=== PATIENT | female | born 1980 | race African-American/Black ===

== ENCOUNTER 2021-06-15 14:01 | Emergency (ER) | payer OTHER, SELFPAY ==
[2021-06-15 14:20] VITALS: BP 146/92; PULSE 86; TEMP 98.3; BMI 24.0
[2021-06-15] MEDS ORDERED: IBUPROFEN 600 MG TABLET (FP) PO ONE ×2 (16:07→17:08)
[2021-06-15 16:16] LABS: CHLORIDE 108 mmol/L (98-107); SODIUM 140 mmol/L (136-145)
[2021-06-15 16:18] LABS: BASO % 0.1 % (0-2.0); EOS % 0.6 % (0-4.5); HEMATOCRIT 34.4 % (32.4-45.2); HEMOGLOBIN 11.3 GM/dL (10.7-15.3); LYMPH % 43.5 % (8-40); MCH 30.4 pg (25.7-33.7); MCHC 32.9 g/dl (32.0-36.0); MEAN CELL VOLUME 92.5 fl (80-96); MEAN PLT VOLUME 11.6 fl (7.5-11.1); MONO % 9.6 % (3.8-10.2); NEUT % 46.2 % (42.8-82.8); PLATELET COUNT 115 10^3/uL (134-434); RBC 3.72 M/mm3 (3.60-5.2); RDW 12.6 % (11.6-15.6); WHITE BLOOD COUNT 3.3 K/mm3 (4.0-10.0)
[2021-06-15 16:19] LABS: ALBUMIN 3.1 g/dl (3.4-5.0); CALCIUM 8.7 mg/dL (8.5-10.1)
[2021-06-15 16:20] LABS: ANION GAP 3 MMOL/L (8-16); BLOOD UREA NITROGEN 8.4 mg/dL (7-18); CO2 28 mmol/L (21-32); GLUCOSE,RANDOM 99 mg/dL (74-106)
[2021-06-15 16:22] LABS: CREATININE 0.5 mg/dL (0.55-1.3)
[2021-06-15 16:23] LABS: SGOT/AST 14 U/L (15-37); SGPT/ALT 15 U/L (13-61)
[2021-06-15 16:24] LABS: BILIRUBIN,TOTAL 0.5 mg/dL (0.2-1); TOT PROT 7.1 g/dl (6.4-8.2)
[2021-06-15 16:25] LABS: ALK PHOS 53 U/L (45-117)
[2021-06-15 17:41] LABS: ERYTHROCYTE SEDIMENTATION RATE 21 mm/hr (0-20)
== END 2021-06-15 17:57 | disposition home or self-care (01) ==
LOC: JERFT 14:01
DX: R53.83 Other fatigue (principal)
CPT/HCPCS: 80053; 85025; 85651; 86140; 86160; 86225; 99283-25

== ENCOUNTER 2021-11-21 13:31 | Emergency (ER) | payer OTHER ==
[2021-11-21 13:49] VITALS: BP 131/81; PULSE 74; TEMP 98.1; BMI 24.9
[2021-11-21 17:33] LABS: SYPHILIS W/ RPR CONF NON-REACTIVE (NONREACTIVE)
[2021-11-21 18:01] LABS: HIV INTERPRETATION NEGATIVE (NEGATIVE)
== END 2021-11-21 16:20 | disposition home or self-care (01) ==
LOC: JERFT 13:31
DX: Z77.21 Contact with and (suspected) exposure to potentially hazardous body fluids (principal)
CPT/HCPCS: 36415; 86704; 86780; 86803; 87340; 87389; 87517; 99283-25

== ENCOUNTER 2022-02-10 13:35 | Emergency (ER) | payer OTHER ==
[2022-02-10 13:37] VITALS: RESP 20; TEMP 98.4; BMI 24.7
[2022-02-10] MEDS ORDERED: METOCLOPRAMIDE HCL INJECTION 10 MG/2 ML VIAL ONE ×2 (13:38→14:36)
[2022-02-10] MEDS ORDERED: METOCLOPRAMIDE HCL INJECTION 10 MG/2 ML VIAL IVPUSH ONE (13:40)
[2022-02-10] MEDS ORDERED: SODIUM CHLORIDE 0.9% 500 ML INFUS.BAG IV ONE ×2 (13:40→14:36)
[2022-02-10 14:01] LABS: BASO % 0.4 % (0-2.0); EOS % 0.5 % (0-4.5); HEMATOCRIT 32.3 % (32.4-45.2); LYMPH % 48.6 % (8-40); MCH 31.4 pg (25.7-33.7); MEAN CELL VOLUME 92.1 fl (80-96); MEAN PLT VOLUME 11.5 fl (7.5-11.1); MONO % 12.8 % (3.8-10.2); NEUT % 37.7 % (42.8-82.8); PLATELET COUNT 144 10^3/uL (134-434); RBC 3.51 M/mm3 (3.60-5.2); RDW 12.5 % (11.6-15.6); WHITE BLOOD COUNT 2.6 K/mm3 (4.0-10.0)
[2022-02-10 14:27] LABS: ALBUMIN 2.9 g/dl (3.4-5.0); BLOOD UREA NITROGEN 11.6 mg/dL (7-18); CALCIUM 8.6 mg/dL (8.5-10.1)
[2022-02-10 14:30] LABS: CREATININE 0.6 mg/dL (0.55-1.3)
[2022-02-10 14:32] LABS: BILIRUBIN,TOTAL 0.2 mg/dL (0.2-1); TOT PROT 6.9 g/dl (6.4-8.2)
[2022-02-10] MEDS ORDERED: METOCLOPRAMIDE HCL INJECTION 10 MG/2 ML VIAL IVPB ONE (14:36)
[2022-02-10 16:11] VITALS: BP 120/70; PULSE 70
== END 2022-02-10 16:15 | disposition home or self-care (01) ==
LOC: JER 13:35
PROC: 3E033GC Introduction of Other Therapeutic Substance into Peripheral Vein, Percutaneous Approach (ICD-10-PCS; principal; 2022-02-10)
DX: R42 Dizziness and giddiness (principal); R11.2 Nausea with vomiting, unspecified
CPT/HCPCS: 36415; 80053; 84703; 85025; 99284-25

== ENCOUNTER 2022-02-24 15:07 | Emergency (ER) | payer OTHER ==
[2022-02-24 15:12] VITALS: BP 157/98; PULSE 73; RESP 18; TEMP 97.9; BMI 24.6
[2022-02-24] MEDS ORDERED: SODIUM CHLORIDE 1,000 ML IV STA (15:21)
[2022-02-24] MEDS ORDERED: ACETAMINOPHEN 1000 MG/100 ML BAG IVPB ONE (15:22)
[2022-02-24 15:41] LABS: BASO % 0.6 % (0-2.0); EOS % 1.7 % (0-4.5); HEMOGLOBIN 11.3 GM/dL (10.7-15.3); LYMPH % 49.3 % (8-40); MCH 30.8 pg (25.7-33.7); MCHC 33.3 g/dl (32.0-36.0); MEAN CELL VOLUME 92.6 fl (80-96); MEAN PLT VOLUME 11.5 fl (7.5-11.1); MONO % 9.1 % (3.8-10.2); NEUT % 39.3 % (42.8-82.8); PLATELET COUNT 157 10^3/uL (134-434); RBC 3.68 M/mm3 (3.60-5.2); RDW 13.4 % (11.6-15.6); WHITE BLOOD COUNT 3.1 K/mm3 (4.0-10.0)
[2022-02-24 15:56] LABS: EPI CELLS >36 /uL (0-25.1); HCG,QUALITATIVE URINE Negative; HYALINE CASTS 2 /uL (0-3.1); URINE APPEARANCE CLEAR; URINE BACTERIA 244 /uL (0-1359); URINE BILIRUBIN NEGATIVE (NEGATIVE); URINE COLOR YELLOW; URINE GLUCOSE (UA) NEGATIVE (NEGATIVE); URINE KETONE TRACE (NEGATIVE); URINE LEUK ESTERASE NEGATIVE (NEGATIVE); URINE NITRITE NEGATIVE (NEGATIVE); URINE PROTEIN 3+ (NEGATIVE); URINE RBC 5 /uL (0-23.9); URINE WBC 10 /uL (0-25.8)
[2022-02-24 16:01] LABS: ALBUMIN 2.9 g/dl (3.4-5.0); CALCIUM 8.5 mg/dL (8.5-10.1)
[2022-02-24 16:03] LABS: BLOOD UREA NITROGEN 8.8 mg/dL (7-18)
[2022-02-24 16:05] LABS: CREATININE 0.6 mg/dL (0.55-1.3)
[2022-02-24 16:06] LABS: BILIRUBIN,TOTAL 0.3 mg/dL (0.2-1); TOT PROT 7.2 g/dl (6.4-8.2)
== END 2022-02-24 19:28 | disposition home or self-care (01) ==
LOC: JER 15:07 → JERFT 15:07
DX: R10.33 Periumbilical pain (principal)
CPT/HCPCS: 36415; 74177-TC; 76705-TC; 80053; 81003; 82150; 83690; 84703; 85025; 87086; 99285-25; Q9967

== ENCOUNTER 2022-05-04 08:17 | Emergency (ER) | payer OTHER ==
[2022-05-04 09:00] VITALS: BP 155/98; PULSE 75; RESP 20; TEMP 98; BMI 24.6
[2022-05-04 09:59] LABS: BASO % 0.7 % (0-2.0); EOS % 0.7 % (0-4.5); HEMATOCRIT 35.8 % (32.4-45.2); HEMOGLOBIN 11.7 GM/dL (10.7-15.3); LYMPH % 43.9 % (8-40); MCHC 32.7 g/dl (32.0-36.0); MEAN CELL VOLUME 91.9 fl (80-96); MEAN PLT VOLUME 12.3 fl (7.5-11.1); MONO % 9.8 % (3.8-10.2); NEUT % 44.9 % (42.8-82.8); PLATELET COUNT 168 10^3/uL (134-434); RBC 3.89 M/mm3 (3.60-5.2); RDW 14.1 % (11.6-15.6); WHITE BLOOD COUNT 4.3 K/mm3 (4.0-10.0)
[2022-05-04 10:09] LABS: INR 0.99 (0.83-1.09); PROTHROMBIN TIME (PATIENT) 11.4 SEC (9.7-13.0)
[2022-05-04 10:35] LABS: CHLORIDE 110 mmol/L (98-107); SODIUM 141 mmol/L (136-145)
[2022-05-04 10:36] LABS: CALCIUM 8.6 mg/dL (8.5-10.1)
[2022-05-04 10:37] LABS: ALBUMIN 2.8 g/dl (3.4-5.0); ANION GAP 8 MMOL/L (8-16); BLOOD UREA NITROGEN 12.3 mg/dL (7-18); CO2 24 mmol/L (21-32); GLUCOSE,RANDOM 96 mg/dL (74-106)
[2022-05-04 10:40] LABS: CREATININE 0.6 mg/dL (0.55-1.3); SGOT/AST 11 U/L (15-37); SGPT/ALT 16 U/L (13-61)
[2022-05-04 10:42] LABS: BILIRUBIN,TOTAL 0.2 mg/dL (0.2-1)
[2022-05-04 10:43] LABS: ALK PHOS 57 U/L (45-117)
[2022-05-04 12:09] LABS: EPI CELLS >36 /uL (0-25.1); HYALINE CASTS 1 /uL (0-3.1); PH,URINE 5.5 (5.0-8.0); URINE APPEARANCE CLEAR; URINE BACTERIA 206 /uL (0-1359); URINE BILIRUBIN NEGATIVE (NEGATIVE); URINE COLOR YELLOW; URINE GLUCOSE (UA) NEGATIVE (NEGATIVE); URINE KETONE NEGATIVE (NEGATIVE); URINE LEUK ESTERASE NEGATIVE (NEGATIVE); URINE NITRITE NEGATIVE (NEGATIVE); URINE PROTEIN 2+ (NEGATIVE); URINE RBC 5 /uL (0-23.9); URINE UROBILINOGEN 0.2 mg/dL (0.2-1.0); URINE WBC 13 /uL (0-25.8)
== END 2022-05-04 13:15 | disposition home or self-care (01) ==
LOC: JER 08:17 → JERFT 08:17
DX: M32.9 Systemic lupus erythematosus, unspecified (principal)
CPT/HCPCS: 36415; 71046-TC-FY; 80053; 81003; 84439; 84443; 84703; 85025; 85610; 86140; 99284-25

== ENCOUNTER 2022-07-16 04:35 | Day surgery (SDC) | payer OTHER ==
[2022-07-12 11:34] VITALS: BMI 24.9
[2022-07-16] MEDS ORDERED: MIDAZOLAM HCL 2 MG/2 ML SINGLE DOSE VIAL ONE (09:14)
[2022-07-16] MEDS ORDERED: FENTANYL CITRATE/PF 50 MCG/ML VIAL ONE (09:14)
[2022-07-16] MEDS ORDERED: FENTANYL CITRATE/PF 50 MCG/ML VIAL IVPUSH ONE (10:00)
[2022-07-16] MEDS ORDERED: MIDAZOLAM HCL 2 MG/2 ML SINGLE DOSE VIAL IVPUSH ONE (10:00)
[2022-07-16] MEDS ORDERED: SODIUM CHLORIDE 500 ML IV SCH (10:30)
[2022-07-16 11:50] VITALS: RESP 18
[2022-07-16 12:21] VITALS: BP 138/88; PULSE 71; TEMP 97.7
[2022-07-16] MEDS ORDERED: ACETAMINOPHEN 325 MG TABLET (FP) ONE (13:32)
[2022-07-16] MEDS ORDERED: ACETAMINOPHEN 325 MG TABLET (FP) PO ONE (13:45)
== END 2022-07-16 15:37 | disposition home or self-care (01) ==
LOC: JRADIR 04:35
PROVIDERS: ATTEND Internal Medicine
PROC: 0TB13ZX Excision of Left Kidney, Percutaneous Approach, Diagnostic (ICD-10-PCS; principal; 2022-07-16)
DX: M32.14 Glomerular disease in systemic lupus erythematosus (principal)
CPT/HCPCS: 50200; 81025; 88300-TC; 88329

== ENCOUNTER 2022-08-24 10:42 | Emergency (ER) | payer OTHER ==
[2022-08-24 11:01] VITALS: BP 149/91; PULSE 75; RESP 18; TEMP 98; BMI 24.3
[2022-08-24 11:26] LABS: BASO % 0.2 % (0-2.0); EOS % 0.6 % (0-4.5); HEMATOCRIT 30.5 % (32.4-45.2); HEMOGLOBIN 10.3 GM/dL (10.7-15.3); LYMPH % 28.3 % (8-40); MCH 30.7 pg (25.7-33.7); MCHC 33.7 g/dl (32.0-36.0); MONO % 7.1 % (3.8-10.2); NEUT % 63.8 % (42.8-82.8); PLATELET COUNT 174 10^3/uL (134-434); RBC 3.36 M/mm3 (3.60-5.2); RDW 15.6 % (11.6-15.6); WHITE BLOOD COUNT 6.4 K/mm3 (4.0-10.0)
[2022-08-24 11:57] LABS: ALBUMIN 2.8 g/dl (3.4-5.0); BLOOD UREA NITROGEN 15.2 mg/dL (7-18); CALCIUM 9.1 mg/dL (8.5-10.1)
[2022-08-24 11:59] LABS: CREATININE 0.8 mg/dL (0.55-1.3); URIC ACID 4.4 mg/dL (2.6-7.2)
[2022-08-24 12:00] LABS: PHOSPHOROUS 3.7 mg/dL (2.5-4.9)
[2022-08-24 12:01] LABS: TOT PROT 6.3 g/dl (6.4-8.2)
[2022-08-24 12:02] LABS: BILIRUBIN,TOTAL 0.2 mg/dL (0.2-1)
[2022-08-24 12:51] LABS: HIV INTERPRETATION NEGATIVE (NEGATIVE)
== END 2022-08-24 11:44 | disposition home or self-care (01) ==
LOC: JERFT 10:42 → JER 10:42 → JERFT 11:44
DX: S61.240A Puncture wound with foreign body of right index finger without damage to nail, initial encounter (principal); W46.1XXA Contact with contaminated hypodermic needle, initial encounter
CPT/HCPCS: 36415; 80053; 82465; 82977; 83615; 84100; 84478; 84550; 85025; 86704; 86803; 87340; 87389; 87517; 99283-25

== ENCOUNTER 2023-01-13 15:39 | Emergency (ER) | payer OTHER ==
[2023-01-13 15:45] VITALS: BP 141/78; PULSE 87; RESP 18; TEMP 98.4; BMI 25.5
== END 2023-01-13 16:46 | disposition home or self-care (01) ==
LOC: JERFT 15:39
DX: R53.83 Other fatigue (principal); Z20.822 Contact with and (suspected) exposure to COVID-19
CPT/HCPCS: 0241U-QW; 99283-25

== ENCOUNTER 2023-02-22 07:47 | Emergency (ER) | payer OTHER ==
[2023-02-22 08:13] VITALS: BP 166/97; PULSE 73; RESP 17; TEMP 98.6; BMI 25.5
[2023-02-22] MEDS ORDERED: BENZONATATE 200 MG CAPSULE PO ONE (09:13)
== END 2023-02-22 09:47 | disposition home or self-care (01) ==
LOC: JERFT 07:47
DX: R05.9 Cough, unspecified (principal); R11.10 Vomiting, unspecified; J31.0 Chronic rhinitis
CPT/HCPCS: 71046-TC-FY; 99283-25

== ENCOUNTER 2023-02-24 07:28 | Emergency (ER) | payer OTHER ==
[2023-02-24 07:39] VITALS: BP 153/95; PULSE 86; RESP 18; TEMP 98.2; BMI 25.0
== END 2023-02-24 08:57 | disposition home or self-care (01) ==
LOC: JER 07:28
DX: R05.1 Acute cough (principal); Z20.822 Contact with and (suspected) exposure to COVID-19
CPT/HCPCS: 0241U-QW; 99283-25

== ENCOUNTER 2023-04-08 08:19 | Emergency (ER) | payer OTHER ==
[2023-04-08 09:04] VITALS: BP 153/96; PULSE 73; RESP 18; TEMP 98; BMI 24.9
== END 2023-04-08 10:21 | disposition home or self-care (01) ==
LOC: JER 08:19
DX: M79.671 Pain in right foot (principal)
CPT/HCPCS: 73610-TC-RT-FY; 73630-TC-RT-FY; 99283-25

== ENCOUNTER 2023-05-16 07:48 | Emergency (ER) | payer OTHER ==
[2023-05-16 07:54] VITALS: BP 135/87; PULSE 75; RESP 18; TEMP 98.3; BMI 24.6
[2023-05-16 08:32] LABS: BASO % 0.4 % (0-2.0); EOS % 0.6 % (0-4.5); HEMATOCRIT 32.4 % (32.4-45.2); HEMOGLOBIN 10.3 GM/dL (10.7-15.3); LYMPH % 39.3 % (8-40); MCH 27.3 pg (25.7-33.7); MCHC 31.8 g/dl (32.0-36.0); MEAN PLT VOLUME 10.6 fl (7.5-11.1); MONO % 10.5 % (3.8-10.2); NEUT % 49.2 % (42.8-82.8); PLATELET COUNT 212 10^3/uL (134-434); RBC 3.77 M/mm3 (3.60-5.2); RDW 15.6 % (11.6-15.6); WHITE BLOOD COUNT 4.2 K/mm3 (4.0-10.0)
[2023-05-16 08:36] LABS: HCG,QUALITATIVE URINE Negative
[2023-05-16 08:39] LABS: EPI CELLS 20 /uL (0-25.1); HYALINE CASTS 1 /uL (0-3.1); PH,URINE 5.5 (5.0-8.0); URINE APPEARANCE CLEAR; URINE BACTERIA 36 /uL (0-1359); URINE BILIRUBIN NEGATIVE (NEGATIVE); URINE COLOR YELLOW; URINE GLUCOSE (UA) NEGATIVE (NEGATIVE); URINE KETONE NEGATIVE (NEGATIVE); URINE LEUK ESTERASE NEGATIVE (NEGATIVE); URINE NITRITE NEGATIVE (NEGATIVE); URINE PROTEIN 1+ (NEGATIVE); URINE RBC 8 /uL (0-23.9); URINE UROBILINOGEN 0.2 mg/dL (0.2-1.0); URINE WBC 9 /uL (0-25.8)
[2023-05-16 08:55] LABS: POTASSIUM 3.9 mmol/L (3.5-5.1)
[2023-05-16 08:57] LABS: CALCIUM 9.5 mg/dL (8.5-10.1)
[2023-05-16 08:58] LABS: ALBUMIN 3.1 g/dl (3.4-5.0)
[2023-05-16 09:00] LABS: CREATININE 0.6 mg/dL (0.55-1.3)
[2023-05-16 09:02] LABS: BILIRUBIN,TOTAL 0.3 mg/dL (0.2-1)
== END 2023-05-16 09:42 | disposition home or self-care (01) ==
LOC: JER 07:48
DX: B02.9 Zoster without complications (principal)
CPT/HCPCS: 36415; 80053; 81003; 84703; 85025; 87086; 99283-25

== ENCOUNTER 2023-06-12 08:49 | Emergency (ER) | payer OTHER ==
[2023-06-12 08:56] VITALS: BP 146/90; PULSE 76; RESP 18; TEMP 98.3
== END 2023-06-12 11:35 | disposition home or self-care (01) ==
LOC: JERFT 08:49
DX: S00.01XA Abrasion of scalp, initial encounter (principal); W22.8XXA Striking against or struck by other objects, initial encounter; Y99.0 Civilian activity done for income or pay; Y92.9 Unspecified place or not applicable
CPT/HCPCS: 99283-25

== ENCOUNTER 2023-09-12 08:28 | Emergency (ER) | payer OTHER ==
[2023-09-12 08:37] VITALS: BP 139/88; PULSE 72; RESP 18; TEMP 98; BMI 24.6
[2023-09-12 09:55] LABS: BASO % 0.3 % (0-2.0); HEMATOCRIT 36.9 % (32.4-45.2); HEMOGLOBIN 12.3 GM/dL (10.7-15.3); LYMPH % 51.5 % (8-40); MCH 29.6 pg (25.7-33.7); MCHC 33.2 g/dl (32.0-36.0); MEAN CELL VOLUME 89.1 fl (80-96); MEAN PLT VOLUME 11.8 fl (7.5-11.1); MONO % 15.4 % (3.8-10.2); NEUT % 29.8 % (42.8-82.8); PLATELET COUNT 138 10^3/uL (134-434); RBC 4.14 M/mm3 (3.60-5.2); RDW 16.7 % (11.6-15.6); WHITE BLOOD COUNT 2.9 K/mm3 (4.0-10.0)
[2023-09-12] MEDS ORDERED: METOCLOPRAMIDE HCL INJECTION 10 MG/2 ML VIAL ONE (09:59)
[2023-09-12] MEDS: SODIUM CHLORIDE 0.9% 500 ML INFUS.BAG IV ONE (10:02)
[2023-09-12] MEDS: METOCLOPRAMIDE HCL INJECTION 10 MG/2 ML VIAL IVPB ONE (10:02)
[2023-09-12 10:14] LABS: CALCIUM 8.8 mg/dL (8.5-10.1)
[2023-09-12 10:15] LABS: ALBUMIN 3.1 g/dl (3.4-5.0)
[2023-09-12 10:17] LABS: CREATININE 0.6 mg/dL (0.55-1.3)
[2023-09-12 10:20] LABS: BILIRUBIN,TOTAL 0.3 mg/dL (0.2-1); TOT PROT 6.8 g/dl (6.4-8.2)
== END 2023-09-12 12:01 | disposition home or self-care (01) ==
LOC: JER 08:28
PROC: 3E033NZ Introduction of Analgesics, Hypnotics, Sedatives into Peripheral Vein, Percutaneous Approach (ICD-10-PCS; principal; 2023-09-12)
DX: R11.10 Vomiting, unspecified (principal); R51.9 Headache, unspecified
CPT/HCPCS: 36415; 80053; 83540; 83550; 84703; 85025; 99284-25

== ENCOUNTER 2023-12-02 07:57 | Emergency (ER) | payer OTHER ==
[2023-12-02 08:01] VITALS: RESP 18; BMI 25.5
[2023-12-02 09:43] LABS: BASO % 0.8 % (0-2.0); EOS % 0.7 % (0-4.5); HEMATOCRIT 39.2 % (32.4-45.2); HEMOGLOBIN 13.1 GM/dL (10.7-15.3); LYMPH % 44.5 % (8-40); MCH 31.3 pg (25.7-33.7); MCHC 33.5 g/dl (32.0-36.0); MEAN CELL VOLUME 93.4 fl (80-96); MEAN PLT VOLUME 11.4 fl (7.5-11.1); MONO % 4.9 % (3.8-10.2); NEUT % 49.1 % (42.8-82.8); PLATELET COUNT 152 10^3/uL (134-434); RDW 13.5 % (11.6-15.6); WHITE BLOOD COUNT 4.9 K/mm3 (4.0-10.0)
[2023-12-02 09:57] LABS: POTASSIUM 3.6 mmol/L (3.5-5.1)
[2023-12-02 09:59] LABS: ALBUMIN 3.5 g/dl (3.4-5.0); CALCIUM 9.5 mg/dL (8.5-10.1); MAGNESIUM 1.9 mg/dL (1.8-2.4)
[2023-12-02 10:00] LABS: BLOOD UREA NITROGEN 9.6 mg/dL (7-18)
[2023-12-02 10:02] LABS: CREATININE 0.7 mg/dL (0.55-1.3)
[2023-12-02 10:04] LABS: BILIRUBIN,TOTAL 0.5 mg/dL (0.2-1); TOT PROT 7.6 g/dl (6.4-8.2)
[2023-12-02 11:26] VITALS: BP 145/84; PULSE 74; TEMP 98.6
== END 2023-12-02 11:28 | disposition home or self-care (01) ==
LOC: JER 07:57
DX: R42 Dizziness and giddiness (principal)
CPT/HCPCS: 36415; 80053; 82728; 83540; 83550; 83735; 85025; 85651; 99283-25

== ENCOUNTER 2024-02-10 09:56 | Emergency (ER) | payer OTHER ==
[2024-02-10 11:28] VITALS: BP 137/87; PULSE 100; RESP 16; TEMP 97.9; BMI 24.4
== END 2024-02-10 12:00 | disposition home or self-care (01) ==
LOC: JERFT 09:56
DX: H10.13 Acute atopic conjunctivitis, bilateral (principal); Z20.822 Contact with and (suspected) exposure to COVID-19
CPT/HCPCS: 0241U-QW; 99283-25

== ENCOUNTER 2024-09-30 06:45 | Inpatient (IN) | payer OTHER ==
[2024-09-29 12:09] VITALS: BMI 25.8
[2024-09-30] MEDS ORDERED: PHENAZOPYRIDINE HCL 100 MG TABLET (FP) ONE (06:49)
[2024-09-30] MEDS: PHENAZOPYRIDINE HCL 100 MG TABLET (FP) PO ONE (06:50)
[2024-09-30] MEDS ORDERED: MIDAZOLAM HCL 2 MG/2 ML SINGLE DOSE VIAL ONE (07:15)
[2024-09-30] MEDS ORDERED: SUCCINYLCHOLINE CHLORIDE 200 MG/10 ML SYRINGE ONE (07:15)
[2024-09-30] MEDS ORDERED: LIDOCAINE HCL/PF 2% SDV 5ML VIAL ONE (07:15)
[2024-09-30] MEDS ORDERED: PROPOFOL 20 ML ONE (07:15)
[2024-09-30] MEDS: ceFAZolin SODIUM 1 GM VIAL IVPB ONE (08:30)
[2024-09-30] MEDS ORDERED: DEXAMETHASONE SOD PHOSPHATE 4 MG/1 ML VIAL ONE (08:34)
[2024-09-30] MEDS ORDERED: ceFAZolin SODIUM 1 GM VIAL ONE (08:34)
[2024-09-30] MEDS ORDERED: ROCURONIUM BROMIDE 50 MG/5 ML SYRINGE ONE (08:38)
[2024-09-30] MEDS ORDERED: PROMETHAZINE HCL 25 MG/1 ML VIAL IVPB PRN (08:50)
[2024-09-30] MEDS ORDERED: SUGAMMADEX SODIUM 200 MG/2 ML VIAL ONE (09:44)
[2024-09-30] MEDS ORDERED: oxyCODONE HCL 5 MG TABLET PO PRN ×2 (10:37)
[2024-09-30] MEDS ORDERED: BISACODYL 5 MG TABLET.DR (FP) PO PRN (10:37)
[2024-09-30] MEDS: CEFAZOLIN 2 GM in DEXTROSE 5%-WATER - 100 ML IVPB ONE (11:12)
[2024-09-30] MEDS ORDERED: ONDANSETRON 4 MG/2 ML VIAL ONE (11:18)
[2024-09-30] MEDS: ONDANSETRON 4 MG/2 ML VIAL IVPUSH PRN ×2 (11:20→17:29)
[2024-09-30] MEDS: ACETAMINOPHEN 1000 MG/100 ML BAG IVPB ONE ×2 (11:20→11:21)
[2024-09-30] MEDS: LACTATED RINGERS SOLUTION 1,000 ML IV SCH (11:22)
[2024-09-30] MEDS: TRANEXAMIC ACID 1000 MG/10 ML VIAL IVPUSH ONE (13:39)
[2024-09-30] MEDS: ACETAMINOPHEN 1000 MG/100 ML BAG IVPB SCH (16:09)
[2024-09-30] MEDS ORDERED: CEFAZOLIN 1 GM in DEXTROSE 5%-WATER - 50 ML IVPB SCH (16:30)
[2024-09-30] MEDS: IBUPROFEN 800 MG/8 ML IJ IVPB SCH (16:47)
[2024-09-30] MEDS: CEFAZOLIN 1 GM/D5W 1 GM/50 ML BAG IVPB SCH (16:47)
[2024-09-30] MEDS: predniSONE 5 MG TABLET (UD) PO SCH (21:52)
[2024-09-30] MEDS: DOCUSATE SODIUM 100 MG CAPSULE (FP) PO PRN (21:52)
[2024-10-01 07:45] LABS: HEMATOCRIT 35.1 % (34.1-44.9); HEMOGLOBIN 11.5 g/dL (11.2-15.7); MCHC 32.8 g/dl (32.2-35.5); MEAN CELL VOLUME 93.6 fl (79.4-94.8); MEAN PLT VOLUME 13.9 fl (9.4-12.3); PLATELET COUNT 176 x10^3/uL (182-369); RDW 12.4 % (12.2-17.1)
[2024-10-01] MEDS: CHOLECALCIFEROL (VIT D3) 5000 UNITS (125 MCG) CAP PO SCH (09:31)
[2024-10-01] MEDS: IBUPROFEN 600 MG TABLET (FP) PO PRN (09:32)
[2024-10-01] MEDS: SIMETHICONE 80 MG TAB.CHEW (FP) PO PRN (09:32)
[2024-10-01] MEDS: ENOXAPARIN NA (PORCINE) 40 MG/0.4 ML DISP.SYRIN SQ SCH (09:33)
[2024-10-01] MEDS: RAMIPRIL 2.5 MG CAPSULE PO SCH (09:33)
[2024-10-01] MEDS ORDERED: MYCOPHENOLATE MOFETIL 500 MG TABLET PO SCH (10:00)
[2024-10-01] MEDS: traMADol HCL 50 MG TABLET PO PRN (12:02)
[2024-10-02] MEDS: FAMOTIDINE 20 MG TABLET PO SCH (05:39)
[2024-10-02 05:44] VITALS: RESP 18
[2024-10-02] MEDS: guaiFENesin 200 MG/10 ML 10 ML UNIT-DOSE CUPS PO PRN (06:21)
[2024-10-02] MEDS: ACETAMINOPHEN 500 MG TABLET (FP) PO PRN (09:14)
[2024-10-02 10:02] VITALS: BP 138/80; PULSE 89; TEMP 98.6
== END 2024-10-02 16:10 | disposition home or self-care (01) | DRG 743 ==
LOC: JASUSAT 06:45 → J2C 10:38 → J3W 12:59
PROVIDERS: ADMIT Specialist; ATTEND Specialist
PROC: 0UB90ZZ Excision of Uterus, Open Approach (ICD-10-PCS; principal; 2024-09-30 08:00)
DX: D25.9 Leiomyoma of uterus, unspecified (principal)
CPT/HCPCS: 36415; 81025; 85027; 86850; 86891; 86900; 86901; 88305-TC; 94010; 94760; J0131